=== PATIENT | female | born 1960 | race Caucasian/White ===

== ENCOUNTER → 2017-10-11 | Outpatient (CLI) | payer OTHER ==
--- NOTE | 2017-10-11 14:25 | PCVCIMAG ---
EXAM: BILATERAL CAROTID DUPLEX INDICATION: Carotid Occlusive Disease. FINDINGS: Doppler Measurements (centimeters per second): RIGHT: Peak CCA-85, Peak ECA-82, Diastolic ICA-32, Peak ICA-137, ICA/CCA Ratio-1.6. LEFT: Peak CCA-87, Peak ECA-118, Diastolic ICA-39, Peak ICA-128, ICA/CCA Ratio-1.5. RIGHT CAROTID: The carotid bulb has minimal plaque. The proximal internal carotid artery shows <40% stenosis. The common carotid artery shows no significant stenosis. The external carotid artery shows no significant stenosis. LEFT CAROTID: The carotid bulb has minimal plaque. The proximal internal carotid artery shows <40% stenosis. The common carotid artery shows no significant stenosis. The external carotid artery shows no significant stenosis. Antegrade flow in both vertebral arteries. IMPRESSION: <40% stenosis of the right internal carotid artery with minimal plaque. <40% stenosis of the left internal carotid artery with minimal plaque. LOC:[id number]
--- NOTE | 2017-10-11 16:08 | PCVCIMAG ---
APPROVED REPORT Exam: Stress Echocardiogram Indication: Hypertension, Hyperlipidemia, Fam Hx CAD Patient Location: Echo lab Stress Nurse: Ailin Davis RN Status: routine Ht: 5 ft 7 in HR: 57 bpm BP: 124/70 mmHg Rhythm: Sinus Bradycardia Procedure The patient underwent an Exercise Stress Test using the Kal Protocol. Blood pressure, heart rate, and EKG were monitored. An Echocardiogram was performed by operating room surgical technician in four stages in quad fashion. At peak stress, four selected images were obtained and placed side by side with resting images for comparison. Stress Test Details Stress Test: Exercise stress testing was performed using a Kal protocol. HR Resting HR: 57 bpmMax Heart Rate (APMHR): 165 bpm Max HR Achieved: 164 bpmTarget HR (85% APMHR): 140 bpm % of APMHR: 99 Recovery HR: 86 bpm HR response to stress: Normal HR response to stress BP Resting BP: 124/70 mmHg Max BP: 180/80 mmHg Recovery BP: 126/78 mmHg ECG Resting ECG: Sinus Rhythm Stress ECG: Sinus Rhythm ST Change: Normal Arrhythmia: None Recovery ECG: Sinus Rhythm Recovery ST Change: Normal Recovery Arrhythmia: None Clinical Reason for Termination: Maximal effort Stress Symptoms: Dyspnea Exercise duration: 9 min sec Highest Stage Achieved: Stage 3: 3.4 mph at 14% grade. Exercise capacity: 10.4 METs Overall Exercise Capacity for Age: Normal Pre-Stress Echo The resting Echocardiogram showed normal left ventricular contractility with an estimated Ejection Fraction of about >55%. Normal wall motion in all segments on baseline images. Post-Stress Echo The stress Echocardiogram showed normal left ventricular contractility with an estimated Ejection Fraction of about 65%. Normal augmentation of wall motion in all segments on post stress images. Clinical No clinical or ECG evidence for ischemia. Conclusion Clinical Response: Non-ischemic Exercise Capacity: Average Stress ECG Response: Non-ischemic Stress Echo Images: Non-ischemic The left ventricle is normal in size and wall thickness in both the rest and stress images. Other Information Study Quality: Adequate <Conclusion> The left ventricle is normal in size and wall thickness in both the rest and stress images.
== END | disposition home or self-care (01) ==
LOC: PCVCIMAG 13:10
PROVIDERS: ATTEND Internal Medicine Cardiovascular Disease
DX: I65.23 Occlusion and stenosis of bilateral carotid arteries (principal); I10 Essential (primary) hypertension; E78.5 Hyperlipidemia, unspecified; R07.9 Chest pain, unspecified; I63.9 Cerebral infarction, unspecified; Z82.49 Family history of ischemic heart disease and other diseases of the circulatory system
CPT/HCPCS: 93325; 93351; 93880

== ENCOUNTER → 2018-08-15 | Outpatient (CLI) | payer OTHER ==
--- NOTE | 2018-08-15 12:33 | PCVCIMAG ---
EXAM: AORTOILIAC DUPLEX INDICATION: Palpable abdominal fullness. FINDINGS: AORTA: Suprarenal aorta measures maximum diameter of 2.7 cm. There is not a fusiform infrarenal aortic aneurysm. The infrarenal aorta measures maximum diameter of 2.2 cm. No aortic stenosis. RIGHT COMMON ILIAC ARTERY: Maximum diameter is 1.1 cm. No significant stenosis. RIGHT EXTERNAL ILIAC ARTERY: No significant stenosis. LEFT COMMON ILIAC ARTERY: Maximum diameter is 1.2 cm. No significant stenosis. LEFT EXTERNAL ILIAC ARTERY: No significant stenosis. IMPRESSION: No abdominal aortic aneurysm. No aortoiliac stenosis seen. LOC:[id number]
== END | disposition home or self-care (01) ==
LOC: PCVCIMAG 15:30
PROVIDERS: ATTEND Internal Medicine Cardiovascular Disease
DX: I71.4 Abdominal aortic aneurysm, without rupture (principal)
CPT/HCPCS: 93978

== ENCOUNTER → 2019-09-04 | Outpatient (CLI) | payer OTHER ==
--- NOTE | 2019-09-04 12:09 | PCVCIMAG ---
APPROVED REPORT Indications Stenosis Doppler Spectral Velocity Analysis PSV / EDVPSV / EDV ECA (R) 86 / 20 cm/sECA (L) 84 / 19 cm/s dICA (R) 73 / 36 cm/sdICA (L) 78 / 36 cm/s Maryjane (R) 81 / 31 cm/smICA (L) 78 / 33 cm/s pICA (R) 65 / 26 cm/spICA (L) 84 / 32 cm/s Bulb (R) 59 / 25 cm/sBulb (L) 90 / 34 cm/s dCCA (R) 74 / 25 cm/sdCCA (L) 102 / 37 cm/s mCCA (R) 96 / 31 cm/smCCA (L) 108 / 37 cm/s Vert (R) 53 / 23 cm/sVert (L) 67 / 15 cm/s ICA/CCA ICA/CCA Findings The right carotid bulb has no significant plaque. The right proximal internal carotid artery shows no significant stenosis. The right common carotid artery shows no significant stenosis. The right external carotid artery shows no significant stenosis. The left carotid bulb has no significant plaque. The left proximal internal carotid artery shows no significant stenosis. The left common carotid artery shows no significant stenosis. The left external carotid artery shows no significant stenosis. Conclusion 1. No significant stenosis involving either carotid artery. 2. Antegrade vertebral flow.
--- NOTE | 2019-09-04 12:29 | PCVCIMAG ---
EXAM: BILATERAL SUPERFICIAL VENOUS DUPLEX INDICATION: Leg pain and swelling. FINDINGS: Right leg: No thrombus in the common femoral, main femoral, or popliteal veins. These veins are compressible. Right Great Saphenous Vein: At the saphenofemoral junction the diameter is 9.7 mm, in the mid thigh it is 7.0 mm, and in the calf it is 4.6 mm. There is significant venous insufficiency/reflux throughout. Venous insufficiency/reflux duration is 9.3 seconds. Right Small Saphenous Vein: At the saphenopopliteal junction the diameter is 9.7 mm, and in the calf it is 5.5 mm. There is significant venous insufficiency/reflux throughout. Venous insufficiency/reflux duration is 10.0 seconds. There is a cranial extension present. Left leg: No thrombus in the common femoral, main femoral, or popliteal veins. These veins are compressible. Left Great Saphenous Vein: At the saphenofemoral junction the diameter is 11.3 mm, in the mid thigh it is absent, and in the calf it is 4.6 mm. There is not significant venous insufficiency/reflux throughout. Venous insufficiency/reflux duration is 0.2 seconds. Left Small Saphenous Vein: At the saphenopopliteal junction the diameter is 3.2 mm, and in the calf it is 2.8 mm. There is not significant venous insufficiency/reflux throughout. Venous insufficiency/reflux duration is 0 seconds. There is not a cranial extension present. IMPRESSION: Right Great Saphenous Vein: Significant venous insufficiency/reflux is present as noted above. Right Small Saphenous Vein: Significant venous insufficiency/reflux is present as noted above. Left Great Saphenous Vein: No significant venous insufficiency/reflux is present as noted above. Left Small Saphenous Vein: No significant venous insufficiency/reflux is present as noted above. LOC:[id number]
== END | disposition home or self-care (01) ==
LOC: PCVCIMAG 10:14
PROVIDERS: ATTEND Internal Medicine Cardiovascular Disease
DX: I87.2 Venous insufficiency (chronic) (peripheral) (principal); I63.00 Cerebral infarction due to thrombosis of unspecified precerebral artery; I73.9 Peripheral vascular disease, unspecified
CPT/HCPCS: 93880; 93970

== ENCOUNTER → 2019-09-11 | Outpatient (CLI) | payer OTHER ==
--- NOTE | 2019-09-11 17:30 | PCVCIMAG ---
APPROVED REPORT Study performed: 09/11/2019 15:33:58 Exam: Stress Echocardiogram Indication: Dyspnea, fam hx cad, htn, hlp Patient Location: Echo lab Stress Nurse: Eliane Garsia RN Status: routine Ht: 5 ft 7 in HR: 55 bpm BP: 116/84 mmHg Rhythm: NSR, Bradycardia Procedure The patient underwent an Exercise Stress Test using the Kal Protocol. Blood pressure, heart rate, and EKG were monitored. An Echocardiogram was performed by pv design and installation technician in four stages in quad fashion. At peak stress, four selected images were obtained and placed side by side with resting images for comparison. Stress Test Details Stress Test: Exercise stress testing was performed using a Kal protocol. HR Resting HR: 55 bpmMax Heart Rate (APMHR): 164 bpm Max HR Achieved: 155 bpmTarget HR (85% APMHR): 139 bpm % of APMHR: 94 Recovery HR: 75 bpm HR response to stress: Normal HR response to stress BP Resting BP: 116/84 mmHg Max BP: 176/76 mmHg Recovery BP: 132/78 mmHg BP response to stress: Normal blood pressure response to stress. ECG Resting ECG: Sinus Bradycardia Stress ECG: Sinus Rhythm ST Change: non-specific ST changes Arrhythmia: None Recovery ECG: Sinus Rhythm Recovery ST Change: Normal Recovery Arrhythmia: None Clinical Reason for Termination: Maximal effort Stress Symptoms: Dyspnea Exercise duration: 8 min 17 sec Highest Stage Achieved: Stage 3: 3.4 mph at 14% grade. Exercise capacity: 10.1 METs Overall Exercise Capacity for Age: Normal Scale: Sedentary Angina Score: None Pre-Stress Echo The resting Echocardiogram showed normal left ventricular contractility with an estimated Ejection Fraction of about >55%. The resting echocardiogram demonstrated normal wall motion in all wall segments. Post-Stress Echo The stress Echocardiogram showed normal left ventricular contractility with an estimated Ejection Fraction of about 60-65%. Compared to rest, there were no stress-induced wall motion abnormalities. Clinical No clinical or ECG evidence for ischemia. Conclusion Clinical Response: Non-ischemic Exercise Capacity: Average Stress ECG Response: Non-ischemic Stress Echo Images: Non-ischemic The left ventricle is normal in size and wall thickness in both the rest and stress images. Mild mitral regurgitation. Mild tricuspid regurgitation with PAP of 38 mmHg. Mild pulmonic regurgitation. No aortic regurgitation. No valvular stenosis present. Other Information Study Quality: Adequate <Conclusion> The left ventricle is normal in size and wall thickness in both the rest and stress images. Mild mitral regurgitation. Mild tricuspid regurgitation with PAP of 38 mmHg. Mild pulmonic regurgitation. No aortic regurgitation. No valvular stenosis present.
== END | disposition home or self-care (01) ==
LOC: PCVCIMAG 15:39
PROVIDERS: ATTEND Internal Medicine Cardiovascular Disease
DX: I08.8 Other rheumatic multiple valve diseases (principal); R60.0 Localized edema; I10 Essential (primary) hypertension; E78.5 Hyperlipidemia, unspecified; Z82.49 Family history of ischemic heart disease and other diseases of the circulatory system
CPT/HCPCS: 93325; 93351